=== PATIENT | male | born 1955 | race Two or more races ===

== ENCOUNTER 2022-12-17 13:43 | Emergency (ER) | payer MEDICARE ==
[~2022-12-17] VITALS: Ht 170.2 cm; Wt 59.1 kg
[2022-12-17 13:54] VITALS: TEMP 98.6
[2022-12-17 19:50] VITALS: BP 152/83; PULSE 61; RESP 15
[2022-12-17 20:53] LABS: COVID AG,FIA SOURCE NASAL SWAB
== END 2022-12-18 00:55 | disposition left against medical advice (07) ==
LOC: EMS 14:07
DX: F32.A Depression, unspecified (principal); Z20.822 Contact with and (suspected) exposure to COVID-19; Z53.21 Procedure and treatment not carried out due to patient leaving prior to being seen by health care provider
CPT/HCPCS: 99281; Z7502